=== PATIENT | female | born 2000 | race Caucasian/White ===

== ENCOUNTER → 2019-05-28 14:50 | Outpatient (BNVA) | payer OTHER, SELFPAY | PROVIDERS: Family Provider Family Medicine; Referring Provider Family Medicine; Visit Provider Nurse Practitioner | DX: M25.531 Pain in right wrist (principal); S60.211A Contusion of right wrist, initial encounter; W19.XXXA Unspecified fall, initial encounter | CPT/HCPCS: 73110 ==

== ENCOUNTER 2019-10-19 21:18 | Emergency (ER) | payer OTHER, SELFPAY ==
[2019-10-19 21:43] LABS: Basophils # 0.1 10^3/uL (0.0-0.1); Basophils % 0.7 %; Eosinophils # 0.1 10^3/uL (0.0-0.8); Eosinophils % 1.3 %; Hematocrit 38.3 % (37.0-47.0); Hemoglobin 12.6 g/dL (11.5-15.3); Lymphocytes # 3.1 10^3/uL (1.5-6.5); Lymphocytes % 31.3 %; Mean Corpuscular HGB Conc 32.9 g/dL (30.0-36.0); Mean Corpuscular Hemoglobin 30.5 pg (28.0-34.0); Mean Corpuscular Volume 92.7 fL (81-99); Mean Platelet Volume 10.6 fL (7.4-10.4); Monocytes # 0.7 10^3/uL (0.2-0.9); Monocytes % 7.4 %; Neutrophils # 5.8 10^3/uL (1.8-8.0); Neutrophils % 58.9 %; Nucleated Red Blood Cells % 0 %; Platelet Count 344 10^3/cmm (130-400); Red Blood Count 4.13 10^6/uL (4.1-5.3); Red Cell Distribution Width 12.4 % (12.1-15.1); White Blood Count 9.9 10^3/uL (4.5-13.0)
[2019-10-19 21:49] VITALS: BP 123/79; PULSE 80; RESP 16; TEMP 37.2; O2SAT 98; BMI 28.3
[2019-10-19 22:02] LABS: Alanine Aminotransferase 19 U/L (0-33); Albumin Level 4.7 g/dL (3.5-5.2); Alkaline Phosphatase 59 IU/L (35-105); Anion Gap 15.6 (5-19); Aspartate Amino Transferase 21 U/L (0-32); Blood Urea Nitrogen 14 mg/dL (6-20); Calcium 10.1 mg/dL (8.5-10.5); Carbon Dioxide 26 mmol/L (22-29); Chloride 102 mmol/L (98-107); Creatinine Clr Calc Pharmacy 98.9818; Globulin 2.4 g/dL (1.3-4.6); Glomerular Filtration Rate 91.4 mL/min (90-130); Glucose 100 mg/dL (65-115); Lipase 26 U/L (13-60); Osmolality Calculated 286 mOsm/kg (285-295); Potassium 3.6 mmol/L (3.5-5.1); Sodium 140 mmol/L (136-145); Total Bilirubin 0.4 mg/dL (0.15-1.2); Total Protein 7.1 g/dL (6.6-8.7)
[2019-10-19 22:37] VITALS: BP 127/86; PULSE 81; RESP 16; O2SAT 97
--- NOTE | 2019-10-19 22:41 | US_ITS ---
WS: [id number] RIGHT UPPER QUADRANT ULTRASOUND HISTORY: ruq pain COMPARISON: 09/02/2018 Liver: 10.8 cm in length. Normal size and echogenicity with no intrahepatic dilatation. No mass. Gallbladder: Normally distended gallbladder with no stones or wall thickening. CBD: 0.3 cm Pancreas: Poorly visualized. Right kidney: 9.9 cm in length. Normal echogenicity with no mass or hydronephrosis. Aorta and IVC: Unremarkable. No ascites. US/US gall bladder [id number] IMPRESSION: Normal RIGHT upper quadrant ultrasound.
--- NOTE | 2019-10-19 22:41 | W.ED.ABDPA2 ---
HPI - Abdominal Pain General: Chief Complaint: Abdominal Pain Stated Complaint: abd pain Time Seen by Provider: 10/19/19 21:35 Source: patient Mode of arrival: ambulatory Limitations: no limitations History of Present Illness: HPI narrative: 18-year-old female states she had right upper quadrant pain after eating quesadilla yesterday 5. States pain is sharp in nature and has been persistent. States pain is a 7 out of 10. She denies any fevers. She did have 2 episodes of vomiting. MD elicited complaint: abdominal pain Pertinent past history: none Onset (ago): hour(s) Pain Consistency: constant Location: RUQ Severity: moderate Quality: sharp Radiation: chest Migration to: no migration Exacerbating factors: eating Relieving factors: nothing Associated Symptoms: Denies chills, dysuria and fever(s) Related Data: Date of Last Menstrual Period: 10/18/19 Review of Systems Const: Denies: fever(s), chills, body aches or change in appetite Eyes: Denies: blurry vision or eye discomfort ENMT: Denies: throat pain or dental pain Card: Denies: chest pain Resp: Denies: dyspnea GI: Reports: abdominal pain : Denies: dysuria Musc: Denies: neck pain or back pain Skin/Breast: Denies: rash Neuro: Denies: headache(s) Psych: Denies: depression Hugh/Lymph: Denies: easy bruising All/Imm: Denies: urticaria PFSH ED PFSH: Social History (Updated 05/28/19 @ 14:42 by Kacey Gilbert LPN) Smoking and tobacco status: never smoked 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 [employer] Female Reproductive History: Date of last menstrual period: 10/18/19 Physical Exam Const: COMMON NORMALS: no acute distress, patient oriented x3 and healthy appearing HENMT: COMMON NORMALS: normocephalic and atraumatic HEAD & SCALP: normocephalic and atraumatic Eye: COMMON NORMALS: Equal, round and reactive pupils present and EOMs intact bilaterally PUPIL: Yes Equal, round and reactive pupils present Neck/C-Spine: COMMON NORMALS: full ROM and supple Chest: COMMONS NORMALS: normal inspection of the chest and normal palpation of entire chest wall Resp: COMMON NORMALS: normal respiratory effort, No retractions, No use of accessory muscles and clear to auscultation bilaterally AUSCULTATION: clear to auscultation bilaterally Cardio: COMMON NORMALS: regular rate, regular rhythm and No murmurs present (Cardio) RATE: regular rate RHYTHM: regular rhythm GI: COMMON NORMALS: Normal to inspection, nondistended, normoactive bowel sounds present, Soft to palpation and no masses PALPATION: Yes Soft to palpation and Yes Tenderness to palpation present (GI) Details: RUQ Extremity: COMMON NORMALS: normal to inspection and full ROM Neuro: COMMON NORMALS: patient oriented x3, moves all extremities and no focal motor deficits Psych: COMMON NORMALS: mental status grossly normal, Normal thought process present and cooperative THOUGHT PROCESS: Normal thought process present Skin: COMMON NORMALS: no rashes or lesions noted and no wounds GENERAL SKIN EXAM: no rashes or lesions noted Course Vital Signs: Vital signs: Vital Signs Temperature 99 F 10/19/19 21:49 Pulse Rate 18 L 10/19/19 23:33 Respiratory Rate 67 H 10/19/19 23:33 Blood Pressure 123/83 10/19/19 23:33 Pulse Oximetry 99 10/19/19 23:33 MDM - Abdominal Pain MDM Narrative: Medical decision making narrative: Vesna presents with abdominal pain is likely gastritis. Exam is benign and lab work is normal with no signs of surgical abdomen. Ultrasound shows normal gallbladder. Will place on Protonix and she is to modify her diet. She is to follow-up with her primary care doctor in 3 to 5 days return if worsening. Lab Data: Labs: Lab Results 10/19/19 10/19/19 10/19/19 Range/Units 21:38 21:38 21:38 WBC 9.9 (4.5-13.0) 10^3/ uL RBC 4.13 (4.1-5.3) 10^6/u L Hgb 12.6 (11.5-15.3) g/dL Hct 38.3 (37.0-47.0) % MCV 92.7 (81-99) fL MCH 30.5 (28.0-34.0) pg MCHC 32.9 (30.0-36.0) g/dL RDW 12.4 (12.1-15.1) % Plt Count 344 (130-400) 10^3/c mm MPV 10.6 H (7.4-10.4) fL Neut % (Auto) 58.9 % Lymph % (Auto) 31.3 % [place] % (Auto) 7.4 % Eos % (Auto) 1.3 % Baso % (Auto) 0.7 % Neut # (Auto) 5.8 (1.8-8.0) 10^3/u L Lymph # (Auto) 3.1 (1.5-6.5) 10^3/u L [place] # (Auto) 0.7 (0.2-0.9) 10^3/u L Eos # (Auto) 0.1 (0.0-0.8) 10^3/u L Baso # (Auto) 0.1 (0.0-0.1) 10^3/u L Nucleated RBC % (a uto) 0 % Nucleated RBCs # 0.0 /100WBC Sodium 140 (136-145) mmol/L Potassium 3.6 (3.5-5.1) mmol/L Chloride 102 (98-107) mmol/L Carbon Dioxide 26 (22-29) mmol/L Anion Gap 15.6 (5-19) BUN 14 (6-20) mg/dL Creatinine 0.8 (0.5-0.9) mg/dL GFR Calculation 91.4 (90-130) mL/min Glucose 100 (65-115) mg/dL Calculated Osmolal ity 286 (285-295) mOsm/k g Calcium 10.1 (8.5-10.5) mg/dL Total Bilirubin 0.4 (0.15-1.2) mg/dL AST 21 (0-32) U/L ALT 19 (0-33) U/L Alkaline Phosphata se 59 (35-105) IU/L Total Protein 7.1 (6.6-8.7) g/dL Albumin 4.7 (3.5-5.2) g/dL Globulin 2.4 (1.3-4.6) g/dL Lipase 26 (13-60) U/L HCG, Qual Negative (Negative) Urine Color (Yellow) Urine Appearance (CLEAR) Urine pH (5-7) Ur Specific Gravit y (1.005-1.030) Urine Protein (Negative) Urine Glucose (UA) (Normal) Urine Ketones (Negative) Urine Blood (Negative) Urine Nitrate (Negative) Urine Bilirubin (NEGATIVE) Urine Urobilinogen (Negative) mg/dL Ur Leukocyte Anh ase (Negative) Urine RBC (0-2) /hpf Urine WBC (0-5) /hpf Ur Squamous Epith Cells (0-5) Amorphous Sediment Urine Bacteria (NONE) 10/19/19 Range/Units 22:48 WBC (4.5-13.0) 10^3/ uL RBC (4.1-5.3) 10^6/u L Hgb (11.5-15.3) g/dL Hct (37.0-47.0) % MCV (81-99) fL MCH (28.0-34.0) pg MCHC (30.0-36.0) g/dL RDW (12.1-15.1) % Plt Count (130-400) 10^3/c mm MPV (7.4-10.4) fL Neut % (Auto) % Lymph % (Auto) % Bartow % (Auto) % Eos % (Auto) % Baso % (Auto) % Neut # (Auto) (1.8-8.0) 10^3/u L Lymph # (Auto) (1.5-6.5) 10^3/u L Bartow # (Auto) (0.2-0.9) 10^3/u L Eos # (Auto) (0.0-0.8) 10^3/u L Baso # (Auto) (0.0-0.1) 10^3/u L Nucleated RBC % (a uto) % Nucleated RBCs # /100WBC Sodium (136-145) mmol/L Potassium (3.5-5.1) mmol/L Chloride (98-107) mmol/L Carbon Dioxide (22-29) mmol/L Anion Gap (5-19) BUN (6-20) mg/dL Creatinine (0.5-0.9) mg/dL GFR Calculation (90-130) mL/min Glucose (65-115) mg/dL Calculated Osmolal ity (285-295) mOsm/k g Calcium (8.5-10.5) mg/dL Total Bilirubin (0.15-1.2) mg/dL AST (0-32) U/L ALT (0-33) U/L Alkaline Phosphata se (35-105) IU/L Total Protein (6.6-8.7) g/dL Albumin (3.5-5.2) g/dL Globulin (1.3-4.6) g/dL Lipase (13-60) U/L HCG, Qual (Negative) Urine Color Yellow (Yellow) Urine Appearance Clear (CLEAR) Urine pH 5 (5-7) Ur Specific Gravit y 1.025 (1.005-1.030) Urine Protein Neg (Negative) Urine Glucose (UA) Norm (Normal) Urine Ketones Negative (Negative) Urine Blood 2+ H (Negative) Urine Nitrate Negative (Negative) Urine Bilirubin Neg (NEGATIVE) Urine Urobilinogen Norm (Negative) mg/dL Ur Leukocyte Anh ase Negative (Negative) Urine RBC 0-4 H (0-2) /hpf Urine WBC 0-4 H (0-5) /hpf Ur Squamous Epith Cells 0-4 H (0-5) Amorphous Sediment Not Reportable Urine Bacteria Trace (NONE) Imaging Data ^: US: Radiologist's impression: gb normal Discharge Plan Discharge Patient Disposition: Home, Self-Care Clinical Impression: Abdominal pain Qualifiers: Abdominal location: epigastric Qualified Code(s): R10.13 - Epigastric pain Condition: Stable Prescriptions: New ondansetron 4 mg tablet,disintegrating 4 mg PO Q6H PRN (Reason: nausea and vomiting) Qty: 14 RF: 0 Protonix 40 mg tablet,delayed release (DR/EC) 40 mg PO DAILY 42 Days Qty: 60 RF: 0 Referrals: Xander Salazar MD [Primary Care Provider] - 1-3 days Discharge Diet: Advance as tolerated Discharge Activity: Resume usual activity Patient Instructions: Abdominal Pain (ED) Discharge Date/Time: 10/19/19 23:36 Coding Level of Care Code ED Materials Inspector for Chg Fwd Exam Comprehensive
[2019-10-19 22:44] LABS: HCG, Serum Qual Negative (Negative)
[2019-10-19 22:55] VITALS: RESP 18
[2019-10-19] MEDS: morphine 4 mg/mL SDV 1 mL IVP (22:55)
[2019-10-19] MEDS: ondansetron 2 mg/ML SDV 2 mL 4 MG IVP (22:55)
[2019-10-19 23:27] LABS: Add Urine Microscopic? YES; Bacteria Urine TRACE; Bilirubin Urine Neg (NEGATIVE); Blood Urine 2+ (Negative); Glucose Urine UA Norm (Normal); Ketones Urine Negative (Negative); Leukocyte Esterase Urine Negative (Negative); Nitrate Urine Negative (Negative); Protein Urine Neg (Negative); RBC Urine 0-4 /hpf (0-2); Specific Gravity, Urine 1.025 (1.005-1.030); Squamous Epithelial Cell Urine 0-4 (0-5); Urine Appearance Clear (CLEAR); Urine Color Yellow (Yellow); Urobilinogen Urine Norm (Negative); WBC Urine 0-4 /hpf (0-5); pH Urine 5 (5-7)
[2019-10-19 23:33] VITALS: BP 123/83; PULSE 18; RESP 67; O2SAT 99
== END 2019-10-19 23:36 | disposition home or self-care (01) ==
PROVIDERS: Emergency Provider Emergency Medicine; PCP Family Medicine
DX: R10.13 Epigastric pain (principal)
CPT/HCPCS: 12345; 36415; 76705; 80053; 81001; 81003; 83690; 84703; 85025; 96374; 96375; 99283; J2270; J2405

== ENCOUNTER 2019-10-25 13:44 | Emergency (ER) | payer OTHER, SELFPAY ==
[2019-10-25 13:52] VITALS: BP 126/87; PULSE 104; RESP 16; TEMP 37.1; O2SAT 96; BMI 28.3
--- NOTE | 2019-10-25 14:00 | CTR_ITS ---
PROCEDURE INFORMATION: Exam: CT Abdomen And Pelvis With Contrast Exam date and time: 10/25/2019 3:06 PM Age: 18 years old Clinical indication: Abdominal pain; Localized; Patient HX: Right sided abd pain with n/v; Additional info: Ruq pain, negative gb u/s last week TECHNIQUE: Imaging protocol: Computed tomography of the abdomen and pelvis with intravenous contrast. Radiation optimization: All CT scans at this facility use at least one of these dose optimization techniques: automated exposure control; mA and/or kV adjustment per patient size (includes targeted exams where dose is matched to clinical indication); or iterative reconstruction. Contrast material: OMNI 300; Contrast volume: 95 ml; Contrast route: INTRAVENOUS (IV); COMPARISON: CT abdomen pelvis w con* [id number] 09/02/2018 9:13 PM RADIATION DOSE METRICS: Total DLP (mGy-cm): 708.58 FINDINGS: Liver: There is a diffuse decrease in hepatic parenchymal density, consistent with fatty infiltration. Gallbladder and bile ducts: The gallbladder is normal. There is no wall thickening or pericholecystic fluid to suggest cholecystitis. There is no common bile duct dilation. Pancreas: The pancreas is normal. No peripancreatic inflammatory changes or fluid. Spleen: Normal. No splenomegaly. Adrenals: Normal. No mass. Kidneys and ureters: There is no evidence of hydronephrosis. There is no evidence of renal calcifications. The right renal pelvis is slightly more dilated than the left but this is unchanged. There is no obstructing calculus in this may reflect a mild extrarenal pelvis variant. No obstructing calculi. Stomach and bowel: There is no evidence of intestinal perforation or obstruction. There is no evidence of colitis/diverticulitis. Mild diverticulosis is present in the distal colon. Appendix: A normal appendix is identified. Intraperitoneal space: Unremarkable. No free air. No significant fluid collection. Vasculature: Unremarkable.No abdominal aortic aneurysm. Lymph nodes: A few subcentimeter lymph nodes are noted in the right lower quadrant and may reflect some mild adenitis. No pathologic adenopathy. Bladder: There is nonspecific bladder wall thickening. This may be related to incomplete distention. Reproductive: The uterus is unremarkable. Multiple subcentimeter bilateral ovarian cysts are noted. The ovaries and adnexa are otherwise unremarkable. Bones/joints: Unremarkable. No acute fracture. Soft tissues: Unremarkable. CT/CT abdomen pelvis w con* [id number] IMPRESSION: No acute abnormality. No bowel thickening or inflammatory changes. Unremarkable gallbladder. No duct dilatation. Radiation Dose CTDIVOL = (mGy): DLP = 708.58 (mGy-cm)
--- NOTE | 2019-10-25 14:01 | ED_ITS ---
HPI - Abdominal Pain General: Chief Complaint: Abdominal Pain Stated Complaint: Right abd pain Time Seen by Provider: 10/25/19 13:55 History of Present Illness: HPI narrative: Patient complains about ongoing abdominal pain and nausea since last week no improvement seen since seen here last and placed on Protonix says food seems to continue to bother her pain continues to have right upper quadrant does feel nauseated MD elicited complaint: abdominal pain Onset (ago): week(s) Pain Consistency: constant Location: RUQ Severity: moderate Quality: aching Radiation: none Migration to: no migration Exacerbating factors: eating Relieving factors: nothing Associated Symptoms: Reports no associated symptoms and nausea; Denies chills, fever(s) and vomiting Related Data: Date of Last Menstrual Period: 10/18/19 Review of Systems Const: Denies: fever(s), chills or body aches Eyes: Denies: change in vision or blurry vision ENMT: Denies: throat pain or nasal congestion Card: Denies: chest pain or dyspnea on exertion Resp: Denies: dyspnea, productive cough or non-productive cough GI: Reports: abdominal pain and nausea; Denies: vomiting Musc: Denies: extremity pain Skin/Breast: Denies: rash Neuro: Denies: headache(s) Psych: Denies: anxiety or depression Hugh/Lymph: Denies: easy bruising PFSH ED PFSH: Social History (Updated 05/28/19 @ 14:42 by Kacey Gilbert LPN) Smoking and tobacco status: never smoked 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 [employer] Female Reproductive History: Date of last menstrual period: 10/18/19 Physical Exam Const: COMMON NORMALS: no acute distress, average body habitus and patient oriented x3 HENMT: COMMON NORMALS: normocephalic HEAD & SCALP: normal to inspection and normocephalic FACE & SINUS: normal facial exam Eye: COMMON NORMALS: conjunctivae normal GENERAL EYE: appearance normal, both eyes and all related structures CONJUNCTIVA: Yes conjunctivae normal Neck/C-Spine: COMMON NORMALS: no JVD Chest: COMMONS NORMALS: normal inspection of the chest Resp: COMMON NORMALS: normal respiratory effort and clear to auscultation bilaterally AUSCULTATION: clear to auscultation bilaterally Cardio: COMMON NORMALS: no JVD, regular rate and regular rhythm RATE: regular rate RHYTHM: regular rhythm GI: COMMON NORMALS: Normal to inspection, nondistended, normoactive bowel sounds present PALPATION: Yes Tenderness to palpation present (GI) Details: RUQ Extremity: COMMON NORMALS: normal to inspection and full ROM Neuro: COMMON NORMALS: patient oriented x3 Course Vital Signs: Vital signs: Vital Signs Temperature 98.8 F 10/25/19 13:52 Pulse Rate 85 10/25/19 16:08 Respiratory Rate 14 10/25/19 16:08 Blood Pressure 120/76 10/25/19 16:08 Pulse Oximetry 98 10/25/19 16:08 MDM - Abdominal Pain MDM Narrative: Medical decision making narrative: All test negative patient follow-up Dr. Salazar who is trying get a HIDA scan scheduled for her discussed proper diet did partake of right now while she is waiting for those test mother and patient are both good with what we discussed have no further questions Lab Data: Labs: Lab Results 10/25/19 10/25/19 10/25/19 Range/Units 14:45 14:45 14:45 WBC 7.1 (4.5-13.0) 10^3/ uL RBC 4.29 (4.1-5.3) 10^6/u L Hgb 13.0 (11.5-15.3) g/dL Hct 39.7 (37.0-47.0) % MCV 92.5 (81-99) fL MCH 30.3 (28.0-34.0) pg MCHC 32.7 (30.0-36.0) g/dL RDW 12.0 L (12.1-15.1) % Plt Count 374 (130-400) 10^3/c mm MPV 10.8 H (7.4-10.4) fL Neut % (Auto) 58.3 % Lymph % (Auto) 32.1 % Hale % (Auto) 7.2 % Eos % (Auto) 1.4 % Baso % (Auto) 0.7 % Neut # (Auto) 4.2 (1.8-8.0) 10^3/u L Lymph # (Auto) 2.3 (1.5-6.5) 10^3/u L Hale # (Auto) 0.5 (0.2-0.9) 10^3/u L Eos # (Auto) 0.1 (0.0-0.8) 10^3/u L Baso # (Auto) 0.1 (0.0-0.1) 10^3/u L Nucleated RBC % (a uto) 0 % Nucleated RBCs # 0.0 /100WBC Sodium 139 (136-145) mmol/L Potassium 3.9 (3.5-5.1) mmol/L Chloride 102 (98-107) mmol/L Carbon Dioxide 26 (22-29) mmol/L Anion Gap 14.9 (5-19) BUN 9 (6-20) mg/dL Creatinine 0.7 (0.5-0.9) mg/dL GFR Calculation 106.7 (90-130) mL/min Glucose 101 (65-115) mg/dL Calculated Osmolal ity 284 L (285-295) mOsm/k g Calcium 9.8 (8.5-10.5) mg/dL Total Bilirubin 1.0 (0.15-1.2) mg/dL AST 22 (0-32) U/L ALT 14 (0-33) U/L Alkaline Phosphata se 52 (35-105) IU/L Total Protein 7.4 (6.6-8.7) g/dL Albumin 4.7 (3.5-5.2) g/dL Globulin 2.7 (1.3-4.6) g/dL Lipase 23 (13-60) U/L HCG, Qual Negative (Negative) Discharge Plan Discharge Patient Disposition: Home, Self-Care Clinical Impression: Abdominal pain Qualifiers: Abdominal location: left upper quadrant Qualified Code(s): R10.12 - Left upper quadrant pain Condition: Stable Prescriptions: New promethazine 12.5 mg tablet 12.5 mg PO TID PRN (Reason: nausea and vomiting) Qty: 14 RF: 0 No Action pantoprazole [Protonix] 40 mg tablet,delayed release (DR/EC) 40 mg PO DAILY 42 Days Qty: 60 RF: 0 Discharge Orders: Discharge Order (Routine); Ordered 10/25/19 Ordered By: Jaun Kay Referrals: Xander Salazar MD [Primary Care Provider] - Discharge Diet: Usual diet Patient Instructions: Abdominal Pain (ED) Activity Restrictions/Additional Instructions: Follow-up with medical provider as directed. Take medications as prescribed. Return to the ER or your medical provider if condition worsens. Please read and understand discharge instructions. If any questions ask please. Coding Level of Care Code ED Inspector Outside [employer] for Erasmo Fwd Exam Comprehensive
[2019-10-25 14:42] VITALS: BP 104/74; PULSE 79; RESP 12; O2SAT 98
[2019-10-25] MEDS: sodium chloride 0.9% 1,000 ML 999 ML IV (14:42)
[2019-10-25 14:58] LABS: Basophils # 0.1 10^3/uL (0.0-0.1); Basophils % 0.7 %; Eosinophils # 0.1 10^3/uL (0.0-0.8); Eosinophils % 1.4 %; Hematocrit 39.7 % (37.0-47.0); Lymphocytes # 2.3 10^3/uL (1.5-6.5); Lymphocytes % 32.1 %; Mean Corpuscular HGB Conc 32.7 g/dL (30.0-36.0); Mean Corpuscular Hemoglobin 30.3 pg (28.0-34.0); Mean Corpuscular Volume 92.5 fL (81-99); Mean Platelet Volume 10.8 fL (7.4-10.4); Monocytes # 0.5 10^3/uL (0.2-0.9); Monocytes % 7.2 %; Neutrophils # 4.2 10^3/uL (1.8-8.0); Neutrophils % 58.3 %; Nucleated Red Blood Cells % 0 %; Platelet Count 374 10^3/cmm (130-400); Red Blood Count 4.29 10^6/uL (4.1-5.3); White Blood Count 7.1 10^3/uL (4.5-13.0)
[2019-10-25 15:03] LABS: HCG, Serum Qual Negative (Negative)
[2019-10-25 15:05] LABS: Alanine Aminotransferase 14 U/L (0-33); Albumin Level 4.7 g/dL (3.5-5.2); Alkaline Phosphatase 52 IU/L (35-105); Anion Gap 14.9 (5-19); Aspartate Amino Transferase 22 U/L (0-32); Blood Urea Nitrogen 9 mg/dL (6-20); Calcium 9.8 mg/dL (8.5-10.5); Carbon Dioxide 26 mmol/L (22-29); Chloride 102 mmol/L (98-107); Globulin 2.7 g/dL (1.3-4.6); Glomerular Filtration Rate 106.7 mL/min (90-130); Glucose 101 mg/dL (65-115); Lipase 23 U/L (13-60); Osmolality Calculated 284 mOsm/kg (285-295); Potassium 3.9 mmol/L (3.5-5.1); Sodium 139 mmol/L (136-145); Total Protein 7.4 g/dL (6.6-8.7)
[2019-10-25] MEDS: iohexol 300 mg/mL 100 mL Btl IV (15:44)
[2019-10-25 16:08] VITALS: BP 120/76; PULSE 85; RESP 14; O2SAT 98
[2019-10-25] MEDS: promethazine 25 mg Tablet PO (16:15)
[2019-10-25] MEDS: HYDROcodone-acetaminophen 5-325 mg Tablet 1 TAB PO (16:15)
== END 2019-10-25 16:45 | disposition home or self-care (01) ==
PROVIDERS: Emergency Provider Nurse Practitioner Family; PCP Family Medicine
DX: R10.12 Left upper quadrant pain (principal)
CPT/HCPCS: 12345; 74177; 80053; 83690; 84703; 85025; 96360; 99282; 99283; J7030; Q0169; Q9967

== ENCOUNTER 2019-10-27 07:50 | Outpatient (CLI) | payer OTHER, SELFPAY ==
--- NOTE | 2019-10-27 08:04 | NM_ITS ---
WS: [id number] NUCLEAR MEDICINE HIDA SCAN CLINICAL INFORMATION: ABDOMINAL PAIN, RIGHT UPPER QUADRANT TECHNIQUE: Following intravenous administration of 24.9 mCi of technetium 99m mebrofenin, images of t he abdomen were obtained over the course of 60 minutes. Next, gallbladder ejection fraction was deter mined by obtaining preprandial and one-hour postprandial images of the gallbladder following oral ing estion of Ensure. COMPARISON: FINDINGS: Normal hepatic uptake at 5 minutes. Normal common bile duct is visualized. Normal small bowel. Gallbl adder is visualized by 20 minutes. No evidence of acute cholecystitis. No evidence of choledocholithi asis. Gallbladder ejection fraction 77% within normal limits. No evidence of chronic cholecystitis. NM/NM hepatobiliary w phar* [id number] IMPRESSION: 1. No evidence of acute or chronic cholecystitis. 2. Gallbladder ejection fraction 77%.
== END 2019-10-27 07:51 | disposition home or self-care (01) ==
PROVIDERS: PCP Family Medicine; Visit Provider Family Medicine
DX: R10.11 Right upper quadrant pain (principal)
CPT/HCPCS: 78227; A9537

== ENCOUNTER 2019-11-11 09:32 | Day surgery (SDC) | payer OTHER, SELFPAY ==
[2019-11-11] VITALS (9 sets, daily range): BP systolic 117–133; BP diastolic 63–80; PULSE 88–117; RESP 14–22; TEMP 36.4–37.4; O2SAT 97–100
--- NOTE | 2019-11-11 09:43 | W.PM.OPSUD ---
Surgery/Procedure H&P Update DATE OF PROCEDURE: November 11, 2019 DATE H&P PERFORMED: 11/09/19 H&P UPDATE INFORMATION: No changes to prior documentation PLANNED PROCEDURE: Operation Date: 11/11/19 10:55 Proposed Procedures p Laparoscopic Cholecystectomy poss open(Not Applicable) - Gabe Ramirez MD
[2019-11-11] MEDS: sodium chloride 0.9% 1,000 ML 30 ML IV (10:01)
[2019-11-11 10:06] LABS: OR HCG Qualitative Urine Negative (Negative)
--- NOTE | 2019-11-11 10:09 | P.ANESASSM_ITS ---
Pre-Anesthetic Assessment Pre-Anesthetic Assessment: Height/Weight: Height 1.55 m Weight 65.771 kg Preop Diagnosis: Cholelithiasis Proposed Procedure: Operation Date: 11/11/19 10:55 Proposed Procedures p Laparoscopic Cholecystectomy poss open(Not Applicable) - Gabe Ramirez MD Familial anesthetic complications: None Was Beta Laine taken within 24 hours: N/A Last intake: Intake Last Liquid Date 11/10/19 Last Liquid Time 19:00 Last Solid Date 11/10/19 Last Solid Time 19:00 Social: Social History: No alcohol and No tobacco Exam: Pre-Anes Outpt Exam: alert, oriented x 3, clear to auscultation bilaterally and regular rate & rhythm Airway: Cervical ROM: WNL MP: 1 Dentition: Full Anesthetic Plan: ASA status: 1 Anesthesia: General Risk of > 500 ml blood loss (7ml/kg in children): No Meds/Allergies Current Medications: Current Medications Generic Name Dose Route Start Last Admin Trade Name Freq PRN Reason Stop Dose Admin Sodium Chloride 1,000 mls @ 30 ml s/hr 11/11/19 08:45 11/11/19 10:01 Sodium Chloride 0.9% IV 11/12/19 08:44 30 mls/hr .Q24H KRISHNA Administration PFSH Anesthesia PFSH: Social History (Updated 05/28/19 @ 14:42 by Kacey Gilbert LPN) Smoking and tobacco status: never smoked 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
[2019-11-11] MEDS: midazolam 1 mg/mL INJ 2 mL 2 MG IVP (10:10)
--- NOTE | 2019-11-11 10:48 | P.OP_ITS ---
Operative Report Date of procedure: November 11, 2019 Pre-op Diagnosis: Chronic cholecystitis. Post-op diagnosis: same Procedure Done: Laparoscopic cholecystectomy. Specimens removed/disposition: Gallbladder. Surgeon: Gabe Ramirez Anesthesia: General Estimated blood loss (mL): 5 Complications: None. Condition: stable Disposition: PACU Procedure: The patient was brought to the Operating Room and was placed in a supine position on the Operating Room table. General endotracheal anesthesia was induced. The abdomen was prepped and draped in a sterile fashion. A small vertical incision was carried out in the inferior aspect of the umbilicus. Blunt dissection was carried out down to the fascia, which was grasped with a Ayla clamp. A stay suture of 0 Vicryl was placed on either side of the midline and the midline fascia was incised. The underlying peritoneum was opened bluntly and the Neptali port was placed directly into the peritoneal cavity and was held in place with the inflatable balloon. The peritoneal cavity was insufflated with carbon dioxide. The laparoscope was used to inspect the abdominal cavity. No gross abnormalities were noted. A 5 millimeter port was placed in the epigastrium under direct vision. Two 5-millimeter ports were placed on the right side of the abdomen under direct vision. The gallbladder was grasped and was elevated. Blunt dissection and hydrodissection were carried out in the infundibular region of the gallbladder and the cystic duct and cystic artery were identified. The gallbladder was partially removed from the liver bed using cautery and the spatula to confirm the anatomy before the structures were clipped and divided. The gallbladder was then removed from the liver bed using cautery and the spatula. The patient appeared to have some chronic inflammatory change in the plane between the gallbladder and liver bed. After the gallbladder had been removed from the liver bed, the laparoscope was moved to the epigastric port and the gallbladder was removed from the peritoneal cavity through the umbilical port site. The stay sutures of Vicryl were tied to each other at the umbilicus, closing the defect so that it was airtight. The perihepatic spaces were irrigated with saline and the liver bed was reinspected. No ongoing problems were seen. The remaining ports were removed from the abdominal wall and the pneumo peritoneum was evacuated. All skin incisions were closed using inverted interrupted sutures of 4-0 Vicryl. Benzoin and Steri-Strips were placed over the incisions and Band-Aids followed. The patient was taken to the Recovery Area in stable condition postoperatively.
[2019-11-11] MEDS: ondansetron 2 mg/ML SDV 2 mL 4 MG IVP (11:01)
== END 2019-11-11 12:16 | disposition home or self-care (01) ==
PROVIDERS: PCP Family Medicine; Visit Provider Surgery
PROC: 0FT44ZZ Resection of Gallbladder, Percutaneous Endoscopic Approach (ICD-10-PCS; CPT 47562; principal; 2019-11-11 10:55)
DX: K81.1 Chronic cholecystitis (principal)
CPT/HCPCS: 47562; 12345; 81025; 84703; 88304; 96374; J0131; J0690; J1885; J2250; J2405; J2704; J3010; J3490; J7030

== ENCOUNTER → 2020-08-18 11:13 | Outpatient (BNVA) | payer SELFPAY | PROVIDERS: PCP Family Medicine; Visit Provider Nurse Practitioner | DX: R50.9 Fever, unspecified (principal) | CPT/HCPCS: 85025 ==

== ENCOUNTER 2020-08-28 05:11 | Emergency (ER) | payer OTHER, SELFPAY ==
[2020-08-28 05:27] VITALS: BP 114/71; PULSE 75; RESP 19; TEMP 36.8; O2SAT 99; BMI 30.2
--- NOTE | 2020-08-28 06:16 | W.ED.HA ---
HPI - Headache General: Chief Complaint: Headache Stated Complaint: H/A ALL WEEKEND Time Seen by Provider: 08/28/20 06:04 History of Present Illness: HPI Narrative: 19 yo female with a hx of migrianes. Has had migraines in the past this is similar and has been on going for the last approx 23 days. Refers pain to the R side with photophobia and otophobia. Pt has taken tramadol intermittently with no releif of symptoms. She has had nausea and vomitting but no releif of her migraine. SHe had not taken anything else. She denies any head trauma or recetn illness. MD elicited complaint: migraine Pertinent past history: migraines Onset description: gradually Location: right and frontal Severity: severe Quality & Timing: throbbing Exacerbating factors: light and noise Relieving factors: rest Associated symptoms: Reports nausea, photophobia and sound sensitivity; Deny chest pain, confusion, cough, diaphoresis, eye pain, eye redness, fever(s), lightheadedness, loss of vision, malaise, neck stiffness, numbness, paresthesias, pre-syncope, rash, seizures, short of breath, syncope, vomiting or weakness Treatments prior to arrival: none Review of Systems Const: Denies: fever(s), malaise or diaphoresis ENMT: Denies: throat pain, ear or mastoid pain, nasal discharge or nasal congestion Card: Denies: chest pain, lightheadedness, syncope or pre-syncope Resp: Denies: dyspnea, productive cough or non-productive cough GI: Reports: nausea; Denies: vomiting : Denies: flank pain, difficulty voiding, dysuria, urinary frequency or urinary urgency Skin/Breast: Denies: rash Neuro: Denies: confusion PFSH ED PFSH: Medical History Anxiety Headache Family History Other No pertinent past medical history Social History Smoking and tobacco status: never smoked Alcohol intake: never Marital status: Single Number of children: 0 Current occupational status: employed 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 Reproductive History: Date of last menstrual period: 10/18/19 Physical Exam Const: COMMON NORMALS: no acute distress GENERAL APPEARANCE: cooperative and comfortable ORIENTATION/CONSCIOUSNESS: Yes awake, Yes oriented to person, Yes oriented to place and Yes oriented to time HENMT: COMMON NORMALS: normocephalic, atraumatic and hearing grossly normal bilaterally HEAD & SCALP: normocephalic and atraumatic Eye: COMMON NORMALS: Equal, round and reactive pupils present, EOMs intact bilaterally, conjunctivae normal and no scleral icterus CONJUNCTIVA: Yes conjunctivae normal PUPIL: Yes Equal, round and reactive pupils present DIRECT OPHTHALMOSCOPY: Yes photophobia Neck/C-Spine: COMMON NORMALS: full ROM, no lymphadenopathy, supple and no JVD Lymph: LYMPHATIC: no lymphadenopathy noted and no lymphedema noted Resp: COMMON NORMALS: normal respiratory effort, No retractions, No use of accessory muscles and clear to auscultation bilaterally AUSCULTATION: clear to auscultation bilaterally Cardio: COMMON NORMALS: no JVD, regular rate, regular rhythm and No murmurs present (Cardio) RATE: regular rate RHYTHM: regular rhythm GI: COMMON NORMALS: Soft to palpation and No hepatosplenomegaly present AUSCULTATION: Yes normoactive bowel sounds PALPATION: Yes Soft to palpation, No Tenderness to palpation present (GI), No Guarding due to palpation present (GI) and Yes No hepatosplenomegaly present Extremity: COMMON NORMALS: normal to inspection, capillary refill normal, no clubbing, cyanosis or edema, no calf tenderness and no pedal edema Neuro: SENSORIUM/ORIENTATION: Yes oriented to person, Yes oriented to place and Yes oriented to time Skin: COMMON NORMALS: no rashes or lesions noted GENERAL SKIN EXAM: no rashes or lesions noted Course Vital Signs: Vital signs: Vital Signs Temperature 98.4 F 08/28/20 07:05 Pulse Rate 69 08/28/20 07:05 Respiratory Rate 16 08/28/20 07:05 Blood Pressure 114/64 08/28/20 07:05 Pulse Oximetry 98 08/28/20 07:05 MDM - Headache MDM Narrative: Medical decision making narrative: Patient has had migrainous headaches now for the last 4 months almost daily. Already started on Topamax 25 nightly for migraine prophylaxis discussed with her that this likely will need to be increased. Additionally gave her sumatriptan to use as needed for migraine breakthrough. Encourage patient to follow-up with her primary care doctor within the week. Discharge Plan Discharge Patient Disposition: Home Clinical Impression: Migraine Condition: Stable Prescriptions: New Topamax 25 mg tablet 25 mg PO DAILY Qty: 30 RF: 0 sumatriptan succinate 50 mg tablet See Rx Instructions .ROUTE .COMPLEX Qty: 20 RF: 0 No Action ketorolac 10 mg tablet 10 mg PO Q6H PRN (Reason: pain) 20 Days Qty: 30 RF: 0 tramadol 50 mg tablet 50 mg PO Q6H PRN (Reason: pain) Qty: 10 RF: 0 Discharge Orders: Discharge ED (Routine); Ordered 08/28/20 Ordered By: Marvin Ontiveros Referrals: Akil Zavala MD [Physician] - Discharge Diet: Usual diet Discharge Activity: Increase activity as tolerated Patient Instructions: Opioid Safety Activity Restrictions/Additional Instructions: Up with your primary care doctor within the week. 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
[2020-08-28] MEDS: promethazine 25 mg/mL SDV 1 mL IM (06:54)
[2020-08-28] MEDS: ketorolac 30 mg/mL INJ IVP (06:57)
[2020-08-28] MEDS: sodium chloride 0.9% 1,000 ML 999 ML IV (06:57)
[2020-08-28 07:05] VITALS: BP 114/64; PULSE 69; RESP 16; TEMP 36.9; O2SAT 98
[2020-08-28 07:57] VITALS: BP 111/64; PULSE 78; RESP 16; O2SAT 100
== END 2020-08-28 07:58 | disposition home or self-care (01) ==
PROVIDERS: Emergency Provider Family Medicine; PCP Family Medicine
DX: G43.909 Migraine, unspecified, not intractable, without status migrainosus (principal)
CPT/HCPCS: 96361; 96372; 96374; 99283; J1885; J2550; J7030

== ENCOUNTER 2022-09-04 15:41 | Emergency (ER) | payer BC, MEDICAID, SELFPAY ==
[2022-09-04 15:46] VITALS: BP 126/85; PULSE 98; RESP 16; TEMP 36.9; O2SAT 98; BMI 32.5
--- NOTE | 2022-09-04 18:13 | ED_ITS ---
HPI - Fever General: Chief Complaint: Fever Stated Complaint: fever, 19 weeks Time Seen by Provider: 09/04/22 18:09 History of Present Illness: 21-year-old female comes in today for complaints of fever, lower abdominal pain, and low back pain. Patient reports that she had a small amount of bleeding on Friday and was evaluated at [facility] and no significant abnormalities was noted. Patient comes in today due to increasing fever and concerns for fetus. Patient is 19 weeks . Patient has a blood type of a negative. Patient did receive RhoGAM injection on Friday. Patient appears nontoxic. Patient appears in no acute distress. Patient denies any abnormal discharge. Patient takes vitamins routinely. Associated symptoms: Deny chest pain, nausea, vaginal discharge or vomiting Review of Systems General: Reports: 10 or more systems reviewed and unremarkable except in HPI and below Const: Reports: fever(s) Eyes: Denies: eye discharge ENMT: Denies: throat pain or nasal discharge Card: Denies: chest pain Resp: Denies: dyspnea GI: Denies: nausea or vomiting : Denies: difficulty voiding, vaginal bleeding or vaginal discharge Musc: Reports: back pain Skin/Breast: Denies: rash PFSH ED PFSH: Medical History (Updated 09/04/22 @ 21:17 by JANUSZ Medina) Abdominal pain in female patient Anxiety and depression Contusion of wrist, right Headache Weight loss advised Family History Other No pertinent past medical history Social History Alcohol intake: never Substance/Drug Use: never Marital status: Single Number of children: 0 Current occupational status: employed 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 Const: COMMON NORMALS: alert HENMT: COMMON NORMALS: normocephalic HEAD & SCALP: normocephalic Neck/C-Spine: COMMON NORMALS: full ROM Resp: COMMON NORMALS: normal respiratory effort and clear to auscultation bilaterally AUSCULTATION: clear to auscultation bilaterally Cardio: COMMON NORMALS: regular rate and regular rhythm RATE: regular rate RHYTHM: regular rhythm GI: COMMON NORMALS: Soft to palpation AUSCULTATION: Yes normoactive bowel sounds PALPATION: Yes Soft to palpation : COMMON NORMALS: Yes no CVA tenderness BLADDER/KIDNEY EXAM: Yes no CVA tenderness Back/Pelvis: COMMON NORMALS: no CVA tenderness Extremity: COMMON NORMALS: no pedal edema Neuro: SENSORIUM/ORIENTATION: Yes alert Skin: COMMON NORMALS: turgor normal GENERAL SKIN EXAM: turgor normal Course Vital Signs: Vital signs: Vital Signs Temperature 98.4 F 09/04/22 15:46 Pulse Rate 98 09/04/22 15:46 Respiratory Rate 16 09/04/22 15:46 Blood Pressure 116/73 09/04/22 18:58 Pulse Oximetry 96 09/04/22 18:58 Oxygen Delivery Me thod Room Air 09/04/22 15:46 MDM - Fever Medical Decision Making 21-year-old female comes in today with complaints of lower abdominal pain and low back pain. Vital signs are normal. Bowel sounds are present. Skin is warm and dry. Respirations are even. Differential diagnosis includes but not limited to viral syndrome, urinary tract infection, [place] contractions, premature labor. CBC shows a mild leukocytosis at 13.6, mild anemia with a hemoglobin of 11, BMP was unremarkable. CRP was normal. Urinalysis was clean. Ultrasound of the fetus noted a viable at 20 weeks and 5 days. heart rate was 147. Believe the patient's fever may be secondary to the RhoGAM injection she got 2 days ago probably causing some immune response with a low- grade fever and some body aches. No signs of infection otherwise as noted. Encourage patient to follow-up with primary care or [facility] for further instructions. Recommend return to the ER for new concerns. Patient reported understanding agreed to plan. Lab Data 09/04/22 18:39 09/04/22 18:39 Laboratory Results WBC 13.6 10^3/uL (4.0-10.0) H 09/04/22 18:39 RBC 3.66 10^6/uL (4.1-5.3) L 09/04/22 18:39 Hgb 11.2 g/dL (11.5-15.3) L 09/04/22 18:39 Hct 34.4 % (37.0-47.0) L 09/04/22 18:39 MCV 94.0 fl (81-99) 09/04/22 18:39 MCH 30.6 pg (28.0-34.0) 09/04/22 18:39 MCHC 32.6 g/dL (30.0-36.0) 09/04/22 18:39 RDW 13.8 % (12.1-15.1) 09/04/22 18:39 Plt Count 293 10^3/cmm (130-400) 09/04/22 18:39 MPV 10.5 fL (7.4-10.4) H 09/04/22 18:39 Neut % (Auto) 69.3 % 09/04/22 18:39 Lymph % (Auto) 21.6 % 09/04/22 18:39 [place] % (Auto) 5.8 % 09/04/22 18:39 Eos % (Auto) 1.5 % 09/04/22 18:39 Baso % (Auto) 0.4 % 09/04/22 18:39 Neut # (Auto) 9.43 10^3/uL (1.8-7.7) H 09/04/22 18:39 Lymph # (Auto) 2.9 10^3/uL (0.8-4.8) 09/04/22 18:39 [place] # (Auto) 0.8 10^3/uL (0.2-0.9) 09/04/22 18:39 Eos # (Auto) 0.2 10^3/uL (0.0-0.8) 09/04/22 18:39 Baso # (Auto) 0.1 10^3/uL (0.0-0.1) 09/04/22 18:39 Nucleated RBC % (auto) 0 % 09/04/22 18:39 Nucleated RBCs # 0.0 /100WBC 09/04/22 18:39 Sodium 137 mmol/L (136-145) 09/04/22 18:39 Potassium 3.8 mmol/L (3.5-5.1) 09/04/22 18:39 Chloride 105 mmol/L (98-107) 09/04/22 18:39 Carbon Dioxide 22 mmol/L (22-29) 09/04/22 18:39 Anion Gap 13.8 (5-19) 09/04/22 18:39 BUN 9 mg/dL (6-20) 09/04/22 18:39 Creatinine 0.4 mg/dL (0.5-0.9) L 09/04/22 18:39 GFR Calculation 197.8 mL/min (90-130) H 09/04/22 18:39 Glucose 76 mg/dL (65-115) 09/04/22 18:39 Calculated Osmolality 281 mOsm/kg (285-295) L 09/04/22 18:39 Calcium 8.7 mg/dL (8.5-10.5) 09/04/22 18:39 C-Reactive Protein 5.9 mg/L (0.0-4.9) H 09/04/22 18:39 Urine Color Yellow (Yellow) 09/04/22 18:09 Urine Appearance Clear (CLEAR) 09/04/22 18:09 Urine pH 6.5 (5-7) 09/04/22 18:09 Ur Specific [place] 1.015 (1.005-1.030) 09/04/22 18:09 Urine Protein Neg (Negative) 09/04/22 18:09 Urine Glucose (UA) Norm (Normal) 09/04/22 18:09 Urine Ketones Negative (Negative) 09/04/22 18:09 Urine Blood Neg (Negative) 09/04/22 18:09 Urine Nitrate Negative (Negative) 09/04/22 18:09 Urine Bilirubin Neg (Negative) 09/04/22 18:09 Urine Urobilinogen Neg mg/dL (Negative) 09/04/22 18:09 Ur Leukocyte Esterase Negative (Negative) 09/04/22 18:09 Discharge Plan Discharge Patient Disposition: Home 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 Condition: Stable Prescriptions: No Action hydroxyzine HCl 25 mg tablet 25 mg PO .hs PRN (Reason: for sleep as needed) Qty: 30 3RF Rx Instructions: take one hour before bedtime bupropion HCl 150 mg tablet extended release 24 hr 150 mg PO QAM Qty: 30 5RF Rx Instructions: 340 B meds lorazepam 0.5 mg tablet 0.5 mg PO BID PRN (Reason: anxiety) 30 Days Qty: 40 2RF Rx Instructions: 340 B meds sumatriptan succinate 50 mg tablet 50 mg PO Q2H PRN (Reason: migraine headache) 90 Days Qty: 20 2RF Rx Instructions: 1 tab at onset headache; if no relief may repeat 1 tab after 2 hrs; max 4 tabs/24 hr Discharge Orders: Discharge ED (Routine); Ordered 09/04/22 Ordered By: Jimmy Haq Discharge Diet: Usual diet Discharge Activity: Increase activity as tolerated Patient Instructions: at 19 to 22 Weeks (ED) Activity Restrictions/Additional Instructions: Plenty of fluids. Healthy diet and exercise. Follow-up with [facility] for further instruction. Return to ED for new concerns. 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
[2022-09-04 18:18] LABS: Add Urine Microscopic? NO; Charge for UA Resulting for Rev
[2022-09-04 18:29] LABS: Bilirubin Urine Neg (Negative); Blood Urine Neg (Negative); Glucose Urine UA Norm (Normal); Ketones Urine Negative (Negative); Leukocyte Esterase Urine Negative (Negative); Nitrate Urine Negative (Negative); Protein Urine Neg (Negative); Specific Gravity, Urine 1.015 (1.005-1.030); Urine Appearance Clear (CLEAR); Urine Color Yellow (Yellow); Urobilinogen Urine Neg (Negative); pH Urine 6.5 (5-7)
--- NOTE | 2022-09-04 18:29 | USR_ITS ---
PROCEDURE INFORMATION: Exam: US , Limited Exam date and time: 09/04/2022 8:29 PM Age: 21 years old Clinical indication: complicated by abdominal or pelvic pain; Generalized abdominal pain; Second trimester (14 weeks 0 days to 27 weeks 6 days); Gestational age or lmp: 19w 5 d per lmp; ; Additional info: Bleeding on Friday LABS AND CLINICAL REPORTS: Last menstrual period start date: 04/19/2022 Gestational age (Established): 19 w 5 d Estimated due date (Established): 01/24/2023 TECHNIQUE: Imaging protocol: Real-time ultrasound of the maternal uterus with image documentation. Exam focused on the clinical indication. COMPARISON: CT abdomen pelvis w con* [id number] 10/25/2019 3:36 PM FINDINGS: Gestation: Single live intrauterine fetus in vertex presentation. heart rate: 147 bpm position: Variable position. facial profile is normal. presentation: Cephalic Placenta: Posterior and Left grade 0 placenta without previa. Amniotic fluid: Amniotic fluid volume is normal. Amniotic fluid index: MARLIN is 19.8 cm. ANATOMY: midline falx: midline falx is normal. cerebellum: cerebellum is normal. lateral ventricles: lateral ventricles are normal. cisterna magna: cisterna magna is normal. choroid plexus: choroid plexus is normal. upper lip and nose: upper lip and nose are normal. situs: situs is normal. heart four-chamber view, heart size and position: heart four-chamber view, size, and position are normal. three-vessel view: three-vessel view is normal. right ventricular outflow tract: right ventricular outflow tract is normal. left ventricular outflow tract: left ventricular outflow tract is normal. kidneys: kidneys are normal. stomach: stomach is normal. urinary bladder: bladder is normal. spine: No visualized abnormalities of spine. Umbilical cord insertion site into the abdomen: umbilical cord insertion site into the abdomen is normal. Umbilical cord vessel number: 3-vessel umbilical cord extremities: No visualized abnormalities of arms/hands. No visualized abnormalities of legs/feet. external genitalia: No visualized abnormalities. BIOMETRY: Gestational age (AUA): 20 w 5 d Estimated due date (AUA): 01/17/2023 Estimated weight: 375 g Biparietal diameter (BPD): 4.8 cm. EGA (BPD) is 20 w 5 d Head circumference (HC): 18.4 cm. EGA (HC) is 20 w 5 d Abdominal circumference (AC): 15.6 cm. EGA (AC) is 20 w 5 d Femur length (FL): 3.4 cm. EGA (FL) is 20 w 5 d Cephalic Index (CI): 86.3 % HC/AC: 1.18 FL/HC: 18.6 % FL/AC: 21.9 % MATERNAL: Cervix: Closed cervix measuring 3.5 cm in length. US/ OB limited [id number] IMPRESSION: Single live intrauterine fetus in vertex presentation with gestational age by ultrasound of 20 weeks 5 days and estimated due date of 01/17/2023.
[2022-09-04 18:51] LABS: Basophils # 0.1 10^3/uL (0.0-0.1); Basophils % 0.4 %; Eosinophils # 0.2 10^3/uL (0.0-0.8); Eosinophils % 1.5 %; Hematocrit 34.4 % (37.0-47.0); Hemoglobin 11.2 g/dL (11.5-15.3); Lymphocytes # 2.9 10^3/uL (0.8-4.8); Lymphocytes % 21.6 %; Mean Corpuscular HGB Conc 32.6 g/dL (30.0-36.0); Mean Corpuscular Hemoglobin 30.6 pg (28.0-34.0); Mean Platelet Volume 10.5 fL (7.4-10.4); Monocytes # 0.8 10^3/uL (0.2-0.9); Monocytes % 5.8 %; Neutrophils # 9.43 10^3/uL (1.8-7.7); Neutrophils % 69.3 %; Nucleated Red Blood Cells % 0 %; Platelet Count 293 10^3/cmm (130-400); Red Blood Count 3.66 10^6/uL (4.1-5.3); Red Cell Distribution Width 13.8 % (12.1-15.1); White Blood Count 13.6 10^3/uL (4.0-10.0)
[2022-09-04 18:58] VITALS: BP 116/73; O2SAT 96
--- NOTE | 2022-09-04 19:03 | PC.NURSE ---
Pt refused respiratory panel. Physician notified.
[2022-09-04 19:13] LABS: Anion Gap 13.8 (5-19); Blood Urea Nitrogen 9 mg/dL (6-20); C Reactive Protein 5.9 mg/L (0.0-4.9); Calcium 8.7 mg/dL (8.5-10.5); Carbon Dioxide 22 mmol/L (22-29); Chloride 105 mmol/L (98-107); Glomerular Filtration Rate 197.8 mL/min (90-130); Glucose 76 mg/dL (65-115); Osmolality Calculated 281 mOsm/kg (285-295); Potassium 3.8 mmol/L (3.5-5.1); Sodium 137 mmol/L (136-145)
[2022-09-04 21:26] VITALS: BP 117/72; PULSE 81; O2SAT 98
--- NOTE | 2022-09-13 07:29 | DCPLANNER ---
TCM called patient due to no primary care physician - patient is established with Dr. Zavala
== END 2022-09-04 21:26 | disposition home or self-care (01) ==
PROVIDERS: Emergency Medicine; Emergency Provider Nurse Practitioner Family
DX: O26.892 Other specified pregnancy related conditions, second trimester (principal); R50.83 Postvaccination fever; T50.Z15A Adverse effect of immunoglobulin, initial encounter; Z3A.19 19 weeks gestation of pregnancy; Y84.8 Other medical procedures as the cause of abnormal reaction of the patient, or of later complication, without mention of misadventure at the time of the procedure
CPT/HCPCS: 36415; 76815; 80048; 81003; 85025; 86140; 99284